=== PATIENT | female | born 1925 | race Caucasian/White ===

== ENCOUNTER 2017-08-18 10:05 | Day surgery (SDC) | payer MEDICARE, OTHER ==
[2017-08-18] MEDS ORDERED: LIDOCAINE 2% (SDV) 5 ML INJ (12:45)
[2017-08-18] MEDS ORDERED: PROPOFOL 40 ML (12:45)
== END 2017-08-18 13:44 | disposition home or self-care (01) ==
LOC: GIL 10:05
DX: K64.8 Other hemorrhoids (principal); I10 Essential (primary) hypertension; I50.9 Heart failure, unspecified; E78.00 Pure hypercholesterolemia, unspecified
CPT/HCPCS: 45380; 88305